=== PATIENT | female | born 1995 | race Caucasian/White ===

== ENCOUNTER 2017-10-05 21:12 | Emergency (ER) | payer OTHER ==
[~2017-10-05] VITALS: Ht 147.3 cm; Wt 66.2 kg
--- NOTE | 2017-10-05 21:51 | PHYS DOC ---
General Chief Complaint: HEAD INJURY/TRAUMA Stated Complaint: HEAD INJURY WK COMP Time Seen by MD: 21:15 Source: patient, family Exam Limitations: no limitations Problems: History of Present Illness Initial Comments Patient is 22-year-old female here with reported work-related head injury. Patient states that approximately 90 minutes ago while working at [employer] she hit her head on the freezer door. She is not fall or lose consciousness but did "see stars" and was dazed. She's had a persistent global headache and photophobia with some nausea no vomiting. She has swelling at the right supraorbital ridge with a 0.5 cm abrasion which is scabbed. She went home and after spending some time with her parents they insisted that she come to the emergency department for evaluation. In the emergency department the patient complains of moderate global headache described as throbbing, she has photophobia but her dizziness has resolved. Denies any focal neurologic deficits and denies any new or progressive symptoms since the incident. She has not notified her employer however they intend to do so immediately upon discharge. Timing/Duration: 1-3 hours Severity: mild Modifying Factors: worse with movement, improves with rest Associated Symptoms: headaches, malaise, nausea/vomiting, other Allergies: Coded Allergies: No Known Drug Allergies (Unverified , 10/05/17) Past Medical History Medical History: no pertinent history Surgical History: no surgical history Social History Smoker: non-smoker Alcohol: none Drugs: none Review of Systems Constitutional: denies chills, denies diaphoresis, denies fever, malaise EENTM: see HPI, denies eye pain, denies ear discharge, denies nose congestion Respiratory: denies cough, denies shortness of breath, denies wheezing Cardiovascular: denies chest pain, denies palpitations, denies syncope Gastrointestinal: denies abdominal pain, nausea, denies vomiting Musculoskeletal: denies back pain, denies muscle pain, denies neck pain Skin: see HPI Psychiatric/Neurological: see HPI, headache, denies numbness, denies paresthesia, denies weakness Hematologic/Lymphatic: denies blood clots, denies easy bleeding, denies easy bruising Physical Exam General Appearance: WD/WN, no apparent distress Eyes: bilateral eye normal inspection, bilateral eye PERRL, bilateral eye EOMI , bilateral eye other (photophobia noted) Ear, Nose, Throat: hearing grossly normal, normal ENT inspection, normal pharynx (0.5 cm scabbed abrasion at the lateral aspect of the right supraorbital ridge associated with some swelling, no palpable bony deformity or tenderness and the head is otherwise normocephalic atraumatic. 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 I discussed facial abrasions and concussion, discussed head injury precautions as well as time off from work. Discussed over- the-counter prescription medications. The patient and her family's questions were answered to her satisfaction and they expressed agreement and understanding of the treatment plan. They were advised to follow-up with her employer [employer] regarding any workman's comp issues. Departure Time of Disposition: 21:47 Disposition: 01 HOME, SELF-CARE Diagnosis: concussion, work-related head injury, facial abras Condition: GOOD Patient Instructions: Abrasion, [id number], Concussion and Brain Injury, Easy -to-Read Additional Instructions: Please review the patient education until given by ED staff. Off work through October 08, note given. Ice to swollen area 15-20 minutes 4-6 times daily. [id number] Tylenol as needed for discomfort. In general a cool temperature dimly lit environment will provide optimal symptom relief. No strenuous activity or exercise until cleared by your doctor. Follow-up with your doctor Sunday for recheck and further activity restriction modifications. Return to ED with new or changing symptoms. Zofran ODT start pack was dispensed to you in the ED, take one every 4-6 hours as needed for nausea. RON JARRELL DO Oct 05, 2017 21:51
[2017-10-05 22:00] VITALS: BP 116/82
[2017-10-05] MEDS ORDERED: ONDANSETRON 4MG ODT 4TABLET STARTPACK. PO ONE (22:00)
== END 2017-10-05 22:00 | disposition home or self-care (01) ==
LOC: ER 21:12
DX: S06.0X0A Concussion without loss of consciousness, initial encounter (principal); S00.81XA Abrasion of other part of head, initial encounter; W22.8XXA Striking against or struck by other objects, initial encounter; Y93.89 Activity, other specified; Y99.8 Other external cause status; Y92.89 Other specified places as the place of occurrence of the external cause
CPT/HCPCS: 99283; Q0162